=== PATIENT | male | born 1990 | race Caucasian/White ===

== ENCOUNTER 2023-04-20 13:41 | Emergency (ER) | payer MEDICAID, SELFPAY ==
[2023-04-20 13:56] VITALS: BP 133/81; PULSE 106; RESP 18; TEMP 37.6; O2SAT 98; BMI 25.1
--- NOTE | 2023-04-20 14:19 | CRLHL7_ITS ---
For Patients: As a result of the Century Cures Act, medical imaging exams and procedure reports are released immediately into your electronic medical record. You may view this report before your referring provider. If you have questions, please contact your health care provider. INDICATION: Pain and discomfort COMPARISON: none TECHNIQUE: Clark scale imaging was performed of the scrotum. In addition color Doppler and spectral Doppler analysis was performed of the testes. FINDINGS: The testes demonstrate normal arterial and venous blood flow on color Doppler and spectral Doppler analysis. The testes have uniform echogenicity with no evidence of a suspicious mass or area of inflammation. The right testis measures 3.9 x 3.0 x 2.6 cm in size and the left testis measures 4.3 x 2.7 x 2.7 cm. The epididymis appears normal bilaterally. There is no evidence of a hydrocele or varicocele. IMPRESSION: Normal scrotal ultrasound. Dictated by Supa Childress MD @ 04/21/2023 10:15:56 AM (Electronically Signed)
--- NOTE | 2023-04-20 14:20 | ED.MALEGU ---
HPI - Male Genitourinary General Chief complaint: Urogenital Problems, Male Stated complaint: Groin pain, swelling Time Seen by Provider: 04/20/23 13:53 History of Present Illness HPI Narrative: This 32-year-old male comes in reporting some pain in his genitals. He states that it has been present for the past 2 or 3 days. He states that his child did kind of jump on him in this area but did not have any immediate severe pain when that occurred. He feels like his penis is swollen and does reports some tenderness in the posterior aspect of both testes. He does not report any fevers or dysuria symptoms. He is otherwise in good health. He states that he has a monogamous relationship with his . There is no suspicion for sexually transmitted disease. Related Data Previous Rx's Medication Instructions Recorded ketorolac 10 mg tablet 10 mg PO Q8H 5 days #15 tabs 04/20/23 Allergies Allergy/AdvReac Type Severity Reaction Status Date / Time amoxicillin Allergy Severe unknown- Verified 04/20/23 13:56 as a child Penicillin Allergy Severe unknown- Uncoded 09/06/22 07:45 as a child Review of Systems Status of ROS: Reports: 10 or more systems reviewed and unremarkable except as noted in History and below Narrative: Constitutional: No fevers, no weight gain or loss. Eyes: No discharge. No vision changes. HENT: No congestion, no sore throat, no ear pain. Cardiovascular: No chest pain, no palpitations. Respiratory: No shortness of breath, no wheezes, no cough. Gastrointestinal: No abdominal pain, no vomiting, no diarrhea. Genitourinary: No dysuria, no hematuria. Discomfort and feeling of swelling as described above. Musculoskeletal: Normal range of motion. Skin: No rashes, no pruritis. Neurological: No dizziness, weakness, sensory change, speech change. Endo/Heme/Allergies: No bruising or bleeding. No polydipsia. Pysch: no suicidality, no anxiety, no insomnia. All other systems reviewed and are negative. [facility] Medical History (Updated 04/20/23 @ 15:50 by Ernie Tatum MD) Staph skin infection ?L08.9 - Local infection of the skin and subcutaneous tissue, unspecified (ICD-10) ?B95.8 - Unspecified staphylococcus as the cause of diseases classified elsewhere (ICD-10) No chronic diseases present Surgical History (Updated 10/14/21 @ 09:22 by Felice Love) History of appendectomy ?Z90.49 - Acquired absence of other specified parts of digestive tract (ICD-10) Family History (Updated 10/14/21 @ 09:23 by Felice Love) Paternal Grandfather Bone cancer Prostate cancer Social History (Updated 10/14/21 @ 09:23 by Felice Love) Narrative: chewing tobacco use does not drink alcohol marijuana use, episodic nonsmoker Smoking Status: Never smoker Do you use any of these nicotine containing products: Smokeless Tobacco How often do you have a drink containing alcohol: never AUDIT-C Alcohol total score: 0 Non-prescribed substance use: marijuana (any form) Exam Narrative: Exam Narrative: Constitutional: Well-developed, well-nourished, no acute distress. HEENT: Normocephalic, atraumatic. Neck: Normal range of motion. Nontender. Supple. Heart: Regular. No murmurs. Normal rate. Intact distal pulses. Lungs: Clear to auscultation. No chest discomfort. No wheezes, rhonchi, or rales. Abdomen: Normal bowel sounds. Nontender. No rebound tenderness. Genitalia: Normal appearing penis and testes. No sign of swelling or erythema. Back: No midline tenderness. Normal range of motion. Extremities: Normal range of motion. No injury. Skin: Intact. No rash. Warm. No erythema or pallor. Neurologic: No altered sensation. No weakness. Alert and oriented. Psychiatric: No suicidality. No anxiety or depression. No insomnia. Nursing notes and vitals signs are reviewed. Const: Vital Signs, click to edit/add: Vital Signs - 24 hr 04/20/23 13:56 Temperature 99.6 F Pulse Rate [Right Pulse Oximeter] 106 H Respiratory Rate 18 Blood Pressure [Ri ght Upper Arm] 133/81 Pulse Oximetry 98 Oxygen Delivery Me thod Room Air Course Vital Signs Vital signs: Initial Vital Signs Temperature 99.6 F 04/20/23 13:56 Temperature Source Temporal Artery Scan 04/20/23 13:56 Pulse Rate 106 H 04/20/23 13:56 Pulse Rhythm Regular 04/20/23 13:56 Respiratory Rate 18 04/20/23 13:56 Blood Pressure 133/81 04/20/23 13:56 Blood Pressure Mean 98 04/20/23 13:56 Blood Pressure Position Sitting 04/20/23 13:56 Pulse Oximetry 98 04/20/23 13:56 Oxygen Delivery Method Room Air 04/20/23 13:56 Vital Signs Temperature 99.6 F 04/20/23 13:56 Pulse Rate 106 H 04/20/23 13:56 Respiratory Rate 18 04/20/23 13:56 Blood Pressure 133/81 04/20/23 13:56 Pulse Oximetry 98 04/20/23 13:56 Oxygen Delivery Method Room Air 04/20/23 13:56 Temperature 99.6 F 04/20/23 13:56 Pulse Rate 106 H 04/20/23 13:56 Respiratory Rate 18 04/20/23 13:56 Blood Pressure 133/81 04/20/23 13:56 Pulse Oximetry 98 04/20/23 13:56 Oxygen Delivery Method Room Air 04/20/23 13:56 MDM - Male Genitourinary MDM Narrative Medical decision making narrative: This 32-year-old male comes in reporting pain and swelling in his penis and some discomfort in his testicles. On exam these structures look completely normal. He does report some swelling but I do not identify anything of the sort. There is no phimosis as he is circumcised. An ultrasound is obtained and this returns with no acute findings. This patient is okay to return home. He did receive a prescription for Toradol. I advised him to follow up with primary physician or with urology clinic if not improving. He should return if worsening. Discharge Plan Discharge Clinical Impression: Pain of male genitalia Patient Disposition: Home, Self-Care Condition: Stable Additional Instructions: Continue current plans. Activity as tolerated. Take medication as needed and directed. Follow up with MD or Urology Clinic if not improving. Return if worsening. Prescriptions: New ketorolac 10 mg tablet 10 mg PO Q8H 5 Days Qty: 15 0RF Follow Up/Referrals: Jacqueline Hays PA-C [Primary Care Provider] - Stand Alone Forms: [employer] Labeal Info Instructions
== END 2023-04-20 16:00 | disposition home or self-care (01) ==
PROVIDERS: Emergency Provider Emergency Medicine Emergency Medical Services; PCP Physician Assistant Medical
DX: N48.89 Other specified disorders of penis (principal)
CPT/HCPCS: 76870; 93976; 99284